=== PATIENT | female | born 1940 | race Caucasian/White ===

== ENCOUNTER 2017-09-23 22:48 | Emergency (ER) | payer OTHER, MEDICARE ==
[~2017-09-23] VITALS: Ht 162.6 cm; Wt 71.1 kg
[2017-09-23] MEDS ORDERED: PROVENTIL HFA6.7 GM IH (23:58)
[2017-09-24 01:00] VITALS: BP 210/92
== END 2017-09-24 01:03 | disposition home or self-care (01) ==
LOC: EME 22:48
DX: S22.31XA Fracture of one rib, right side, initial encounter for closed fracture (principal); W10.9XXA Fall (on) (from) unspecified stairs and steps, initial encounter
CPT/HCPCS: 71020; 93005; 99281; 99284